=== PATIENT | female | born 1975 | race Caucasian/White ===

== ENCOUNTER 2022-06-26 12:55 | Emergency (ER) | payer MEDICAID ==
[~2022-06-26] VITALS: Ht 154.9 cm; Wt 89.0 kg
[2022-06-26 14:28] LABS: CLARITY URINE CLEAR (CLEAR); COLOR URINE YELLOW (YELLOW); KETONES URINE NEGATIVE (NEGATIVE); LEUKOCYTE ESTERASE URINE 2+ (NEGATIVE); NITRITE URINE NEGATIVE (NEGATIVE); OCCULT BLOOD URINE 1+ (NEGATIVE); PROTEIN URINE NEGATIVE (NEGATIVE); SPECIFIC GRAVITY URINE 1.016 (1.005-1.030); UROBILINOGEN URINE 0.2 E.U./dL (0.2-1.0)
[2022-06-26 15:38] VITALS: BP 131/63
[2022-06-26] MEDS ORDERED: KETOROLAC 60MG/2ML VIAL IM STA (15:38)
[2022-06-26 16:54] LABS: BASOPHILS % 0.4 % (0.0-2.0); HEMATOCRIT. 30.5 % (36.0-48.0); HEMOGLOBIN. 9.3 g/dL (12.0-16.0); LYMPHOCYTES % 24.3 % (20.0-50.0); MEAN CORPUSCULAR HEMOGLOBIN 19.9 pg (28.0-32.0); MEAN PLATELET VOLUME 8.5 fl (7.4-10.4); MONOCYTES % 8.6 % (2.0-8.0); NEUTROPHILS % 62.7 % (40.0-76.0); PLATELET 380 x1000/uL (130-400); RED BLOOD CELL COUNT 4.69 mill/uL (4.2-5.4); RED CELL DISTRIBUTION WIDTH 18.9 % (11.6-14.6)
[2022-06-26 17:04] LABS: CHLORIDE 108 mEq/L (98-107)
[2022-06-26 17:37] LABS: PLATELET ESTIMATE NORMAL
[2022-06-26] MEDS ORDERED: CEPH500C2 MT (18:04)
[2022-06-26] MEDS ORDERED: ONDA4TAB50 MT (18:04)
[2022-06-26] MEDS ORDERED: IBUP-2029 MT (18:04)
== END 2022-06-26 18:41 | disposition home or self-care (01) ==
LOC: ER 12:55
DX: K80.50 Calculus of bile duct without cholangitis or cholecystitis without obstruction (principal); J45.909 Unspecified asthma, uncomplicated
CPT/HCPCS: 36415; 76705; 80053; 81003; 81025; 83690; 85025; 87077; 87086; 87186; 96372; 99285; J1885